=== PATIENT | male | born 2000 | race Two or more races ===

== ENCOUNTER 2021-09-11 13:04 | Emergency (ER) | payer SELFPAY ==
[~2021-09-11] VITALS: Ht 177.8 cm; Wt 86.2 kg
[2021-09-11 13:44] VITALS: BP 123/72
[2021-09-12] MEDS ORDERED: AZIT1POW PO (17:11)
== END 2021-09-12 00:09 | disposition left against medical advice (07) ==
LOC: ER 13:04
DX: B34.9 Viral infection, unspecified (principal); Z20.822 Contact with and (suspected) exposure to COVID-19; Z53.29 Procedure and treatment not carried out because of patient's decision for other reasons
CPT/HCPCS: 36415; 71045

== ENCOUNTER 2021-09-12 16:34 | Emergency (ER) | payer SELFPAY ==
[~2021-09-12] VITALS: Ht 177.8 cm; Wt 86.2 kg
[2021-09-12 17:10] VITALS: BP 104/69
[2021-09-12] MEDS ORDERED: AZIT1POW PO (17:11)
== END 2021-09-12 17:12 | disposition home or self-care (01) ==
LOC: ER 16:34
DX: J02.9 Acute pharyngitis, unspecified (principal); M79.10 Myalgia, unspecified site